=== PATIENT | male | born 1975 | race Caucasian/White ===

== ENCOUNTER 2020-07-27 20:34 | Emergency (ER) | payer MEDICAID, SELFPAY ==
[2020-07-27 20:35] VITALS: BP 133/85; PULSE 84; RESP 16; TEMP 36.6; O2SAT 98; BMI 24.1
--- NOTE | 2020-07-27 22:03 | ED.VISSUMM ---
- ER Visit Summary Date of Service: 07/27/20 Chief Complaint: Sinus congestion History of Present Illness: The patient is a 45 M who presents with sinus congestion and pressure that has been constant over the past 5 days. Patient states it is gradually getting worse. Patient states it feels like a pressure over his frontal sinuses. Patient states he tested positive for COVID-19 yesterday. Patient states he does not believe these results. Patient states that this feels like prior sinus infections. Patient denies any fevers or chills. Patient does admit to some rhinorrhea. Patient denies any nausea or vomiting. Physical Examination: Vital signs are stable. Patient is afebrile. Patient is in no acute distress. Oral mucosa is pink and moist. Neck is supple. Trachea is midline. There is no JVD. Nasal mucosa is mildly congested. There is some mild tenderness to percussion over the frontal sinuses. Heart was regular rate and rhythm. Lungs are clear and equal bilaterally. Abdomen is soft and nontender. Cranial nerves II through XII are intact. There are no focal motor or sensory deficits. Test Results: COVID-19 rapid antigen was obtained and was positive. Emergency Department Course and Treatment: Patient was advised of his findings. Patient was instructed to quarantine. Patient was instructed to wear a mask in public. Patient was instructed to follow-up with his primary care physician in 5 to 7 days. Patient understood and was agreeable with the plan. All questions were answered. Disposition: Discharge home Impression: 1. COVID-19 This note was generated with [employer] dictation software. It may contain incorrect words, spelling, and punctuation that were not noted in review of the chart prior to signing ED Disposition - Plan for ED Patient: Disposition: Home or Assisted Living Diagnosis: COVID-19 Instructions: Coronavirus Disease 2019 (COVID-19): Overview Referrals: Nahun Zhang III, MD [Primary Care Provider] - 5-7 Days
[2020-07-27 22:13] VITALS: RESP 18
== END 2020-07-27 22:31 | disposition home or self-care (01) ==
LOC: ED 22:30
PROVIDERS: Emergency Provider Emergency Medicine; PCP Family Medicine
DX: U07.1 COVID-19 (principal); F17.200 Nicotine dependence, unspecified, uncomplicated
CPT/HCPCS: 87426; 99282

== ENCOUNTER 2021-09-27 00:11 | Emergency (ER) | payer BC, MEDICAID, SELFPAY ==
[2021-09-27 00:13] VITALS: BP 116/90; PULSE 93; RESP 16; TEMP 36.1; O2SAT 100; BMI 23.8
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
[2021-09-27 00:35] VITALS: BP 116/90; PULSE 93; RESP 16; O2SAT 98
== END 2021-09-27 00:36 | disposition home or self-care (01) ==
PROVIDERS: Emergency Provider Emergency Medicine; PCP Family Medicine; Visit Provider Emergency Medicine
DX: S00.03XA Contusion of scalp, initial encounter (principal); F17.210 Nicotine dependence, cigarettes, uncomplicated; V49.40XA Driver injured in collision with unspecified motor vehicles in traffic accident, initial encounter
CPT/HCPCS: 99282

== ENCOUNTER → 2024-06-15 | Outpatient (CLI) | payer BC, MEDICAID, SELFPAY ==
[2024-06-15 11:35] LABS: Albumin, Serum 4.3 g/dL (3.5-5.0); Anion Gap 11 (5-15); BUN 12 mg/dL (4-19); BUN/Creat Ratio 13.5 RATIO (10-20); Calcium,Total 9.1 mg/dL (7.6-11.0); Carbon Dioxide 23.5 mmol/L (21.0-32.0); Chloride 103 mmol/L (98-108); Creatinine, Serum 0.87 mg/dL (0.70-1.20); EST Glomerular Filtration Rate 105 (>60); Glucose 107 mg/dL (70-99); Phosphorus 2.6 mg/dL (2.7-4.5); Sodium Level 138 mmol/L (133-145)
== END | disposition home or self-care (01) ==
LOC: POLAB3 09:28
PROVIDERS: PCP Family Medicine; Visit Provider Internal Medicine Nephrology
DX: Q61.2 Polycystic kidney, adult type (principal)
CPT/HCPCS: 36415; 80069